=== PATIENT | male | born 1990 | race Caucasian/White ===

== ENCOUNTER 2017-06-29 11:23 | Outpatient (CLI) | payer OTHER | END 2017-06-29 14:32 | disposition home or self-care (01) | LOC: SONOGRAMA 11:23 → MAMO-SONO 11:23 | DX: N60.11 Diffuse cystic mastopathy of right breast (principal); N60.12 Diffuse cystic mastopathy of left breast; Z12.31 Encounter for screening mammogram for malignant neoplasm of breast ==

== ENCOUNTER 2017-08-10 09:40 | Day surgery (SDC) | payer OTHER ==
[2017-08-10] MEDS ORDERED: CIPRO XR 500 M500 MG PO (13:37)
[2017-08-10] MEDS ORDERED: ULTRACET PO (13:38)
== END 2017-08-10 15:00 | disposition home or self-care (01) ==
LOC: CIR.AMB 09:40
DX: N62 Hypertrophy of breast (principal)